=== PATIENT | female | born 1975 | race Caucasian/White ===

== ENCOUNTER 2019-04-07 16:28 | Emergency (ER) | payer OTHER ==
[~2019-04-07] VITALS: Ht 167.6 cm; Wt 145.2 kg
[2019-04-07] MEDS ORDERED: LOPRESSOR25 PO (16:35)
[2019-04-07] MEDS ORDERED: SYNTHROID50 MCG PO (16:36)
[2019-04-07] MEDS ORDERED: NAPROSYN500 MG PO (16:36)
[2019-04-07] MEDS ORDERED: SYNTHROID300 MCG PO (16:36)
[2019-04-07] MEDS ORDERED: NEURONTIN 400400 M1 PO (16:36)
[2019-04-07] MEDS ORDERED: BACTRIM DS TAB1 EACH PO (16:52)
[2019-04-07] MEDS ORDERED: KEFLEX500 M1 PO (16:52)
[2019-04-07 17:01] VITALS: BP 152/97
== END 2019-04-07 16:55 | disposition home or self-care (01) ==
LOC: ER 16:28
DX: L03.115 Cellulitis of right lower limb (principal); I10 Essential (primary) hypertension; E07.89 Other specified disorders of thyroid; G47.30 Sleep apnea, unspecified; F17.210 Nicotine dependence, cigarettes, uncomplicated; Z87.09 Personal history of other diseases of the respiratory system